=== PATIENT | female | born 1985 | race Caucasian/White ===

== ENCOUNTER → 2017-02-18 | Outpatient (CLI) | payer BC | LOC: CARD 13:56 | PROVIDERS: ATTEND Nurse Practitioner | DX: R00.0 Tachycardia, unspecified (principal); R00.2 Palpitations | CPT/HCPCS: 93005 ==

== ENCOUNTER → 2017-02-25 | Outpatient (CLI) | payer BC | LOC: CARD 08:33 | PROVIDERS: ATTEND Nurse Practitioner | DX: R00.0 Tachycardia, unspecified (principal); R00.2 Palpitations | CPT/HCPCS: 93225; 93226 ==

== ENCOUNTER 2020-12-15 07:05 | Inpatient (IN) | payer OTHER ==
[~2020-12-15] VITALS: Ht 172.7 cm; Wt 116.0 kg
[2020-12-15] VITALS (11 sets, daily range): BP systolic 112–128; BP diastolic 52–75
--- NOTE | 2020-12-15 07:11 | NUR ---
ADA RUSH presented to unit via ambulatory from home, accompanied by s/o , for INDUCTION. ADA RUSH weighed, gowned, voided, and to bed. EFHM and TOCO applied, VS taken. ADA RUSH oriented to bed controls, call light, TV, heat, and A/C controls.
[2020-12-15] MEDS ORDERED: D5 LR IV SOLUTION 1,000 ML IV ONE (08:16)
[2020-12-15 08:24] LABS: BASOPHILS % (AUTO) 0 % (0-10); EOSINOPHILS # (AUTO) 0.2 10^3/uL (0.0-0.3); EOSINOPHILS % (AUTO) 2 % (0-10); HEMATOCRIT 36 % (35-52); HEMOGLOBIN 12.3 g/dL (11.5-16.0); LYMPHOCYTES # (AUTO) 1.7 10^3/uL (1.0-4.0); LYMPHOCYTES % (AUTO) 25 % (12-44); MEAN CORPUSCULAR HEMOGLOBIN 29 pg (25-34); MEAN CORPUSCULAR HGB CONC 34 g/dL (32-36); MEAN CORPUSCULAR VOLUME 85 fL (80-99); MEAN PLATELET VOLUME 11.4 fL (9.0-12.2); MONOCYTES # (AUTO) 0.5 10^3/uL (0.0-1.0); MONOCYTES % (AUTO) 7 % (0-12); NEUTROPHILS # (AUTO) 4.6 10^3/uL (1.8-7.8); NEUTROPHILS % (AUTO) 66 % (42-75); PLATELET COUNT 176 10^3/uL (130-400)
[2020-12-15] MEDS: D5 LR IV SOLUTION 1,000 ML IV SCH ×4 (08:25→18:30)
[2020-12-15] MEDS ORDERED: LACTATED RINGERS 1,000 ML IV SCH (10:15)
[2020-12-15] MEDS ORDERED: FAMOTIDINE 20MG/2ML IV (PEPCID) IV ONE (10:15)
[2020-12-15] MEDS ORDERED: CITRIC ACID/SOB CIT (BICITRA) 30 ML UDC PO ONE (10:15)
[2020-12-15] MEDS ORDERED: METOCLOPRAMIDE INJ 10 MG/2 ML (REGLAN) IV ONE (10:15)
[2020-12-15] MEDS ORDERED: FAMOTIDINE 20MG/2ML IV (PEPCID) ONE (10:19)
[2020-12-15] MEDS ORDERED: CITRIC ACID/SOB CIT (BICITRA) 30 ML UDC ONE (10:19)
[2020-12-15] MEDS ORDERED: LACTATED RINGERS 1,000 ML IV ONE (10:19)
[2020-12-15] MEDS ORDERED: METOCLOPRAMIDE INJ 10 MG/2 ML (REGLAN) ONE (10:19)
[2020-12-15] MEDS ORDERED: metroNIDAZOLE 500MG/100ML IVPB 100 ML ONE (10:21)
[2020-12-15] MEDS ORDERED: ceFAZolin 2 GM IV Premixed 50 ML ONE (10:21)
[2020-12-15] MEDS ORDERED: metroNIDAZOLE 500MG/100ML IVPB 100 ML IV ONE (10:30)
[2020-12-15] MEDS ORDERED: ceFAZolin INJECTION 2,000 MG in WATER (STERILE) FOR INJECTION 10 ML IV ONE (10:30)
[2020-12-15] MEDS: LACTATED RINGERS 1,000 ML IV SCH ×2 (10:30→18:15)
--- NOTE | 2020-12-15 10:30 | History & Physical ---
History and Physical Date Seen by Provider: Dec 15, 2020 Time Seen by Provider: 10:28 This patient is a 35-year-old 1 white female currently at 38 weeks gestation who was admitted for delivery. Plan was for labor induction however presentation is breech so plan now is for a primary delivery. Patient denies rupture membranes or bleeding. She does feel baby moving. She has occasional contractions. She has had no problems with this and her blood sugars have been controlled with diet. Her GBS culture was negative. Patient is allergic to sulfa drugs Medications are vitamins Medical social and surgical history is all per the antepartum record HEENT exam is normal Neck is supple no lymphadenopathy no thyromegaly Abdomen is gravid soft nontender nondistended Extremities show no clubbing or cyanosis. There is no Homans' sign. Pelvic exam is deferred Bedside ultrasound showed a breech presentation with the head in the left upper quadrant Assessment and plan term at 38+ weeks gestation with gestational diabetes admitted now for delivery plan will be for primary delivery due to breech presentation 38 weeks gestation with breech presentation and gestational diabetes Allergies and Home Medications Allergies Coded Allergies: Sulfa (Sulfonamide Antibiotics) (Verified Allergy, Severe, 12/15/20) Patient Home Medication List Home Medication List Reviewed: Yes YIN BATES MD Dec 15, 2020 10:30
[2020-12-15] MEDS ORDERED: fentaNYL INJECTION 100 MCG/2 ML AMP ONE (10:36)
[2020-12-15] MEDS ORDERED: OXYTOCIN PRE-MIX DRIP 1,000 ML IV ONE (10:37)
[2020-12-15] MEDS ORDERED: KETOROLAC 30 MG/ML VIAL ONE (11:22)
[2020-12-15] MEDS ORDERED: fentaNYL INJECTION 100 MCG/2 ML AMP IVP PRN (12:00)
[2020-12-15] MEDS ORDERED: D5 LR IV SOLUTION 1,000 ML IV SCH (12:00)
[2020-12-15] MEDS ORDERED: TETANUS,DIPTH,PERTUSS P/F (BOOSTRIX) 0.5 ML VIAL IM ONE (12:00)
[2020-12-15] MEDS ORDERED: ONDANSETRON 4 MG/2 ML (SDV) Z0FRAN IVP PRN (12:00)
[2020-12-15] MEDS ORDERED: MEASLES,MUMPS,RUBELLA 1 EA INJ SC ONE (12:00)
[2020-12-15] MEDS: OXYTOCIN PRE-MIX DRIP 500 ML IV SCH ×2 (12:03→16:00)
[2020-12-15] MEDS: KETOROLAC 30 MG/ML VIAL IVP SCH ×2 (12:04→18:21)
[2020-12-15] MEDS ORDERED: ONDANSETRON 4 MG/2 ML (SDV) Z0FRAN ONE (12:04)
[2020-12-15] MEDS ORDERED: BUPIVACAINE 0.5% 30 ML (SENSORCAINE) VIAL ONE (12:04)
--- NOTE | 2020-12-15 12:40 | NUR ---
Received pt from PACU on bed. Accompanied via surgery staff. IV infusing with out difficulty. Viviana Lund RN gave this nurse report. Pt alert and oriented. No concerns voiced at this time. To room 313. see nursing interventions.
--- NOTE | 2020-12-15 17:29 | OPERATIVE REPORT ---
DATE OF SERVICE: 12/15/2020 OPERATIVE PROCEDURE: Primary low transverse delivery of a viable male with Apgars of 2 and 9 at 1 and 5 minutes respectively, weight of 7 pounds 10 ounces. Cord blood gas pH of 7.15 and a time of 11:17. OPERATIVE DESCRIPTION: With the patient in the supine position under satisfactory spinal analgesia, she was repositioned in the dorsal lithotomy position and then prepped and draped in the usual fashion for abdominal surgery. Camacho catheter was placed in the urinary bladder. A Pfannenstiel incision was then made through the skin with a scalpel. The patient's abdomen was entered in the usual manner. Bladder retractor was placed in position. Clean scalpel used to make a 4 cm hysterotomy incision transversely across the lower uterine segment that was extended by blunt dissection as well. The uterus was entered bluntly, after initiating the incision and then clear fluid was released with a fair amount of blood as it appears that we penetrated the lower margin of an anterior placenta. The incision was extended bluntly and then the was delivered via the uterine incision from a aria breech position. Delivery was accomplished in standard surgical manner for a breech. The was bulb suctioned on completion of delivery, the umbilical cord was doubly clamped and cut and the passed to the pediatric nurse in attendance for delivery. Cord bloods were obtained. The placenta delivered spontaneously. It was Olmedo delivery of the placenta. That was sent to pathology for permanent section. The placenta was normal with a 3-vessel cord. The uterus was exteriorized. The interior was wiped clean with a wet laparotomy sponge. Uterine incision then closed with a running locked suture of 2-0 Vicryl. Hemostasis was complete. The uterus was returned to the abdominal cavity. All blood clot and debris removed from the abdominal cavity. With sponge and needle counts correct and hemostasis assured, the anterior parietal peritoneum was closed with running suture of 2-0 Vicryl. Rectus muscles were closed with that suture as well. The rectus fascia was closed with 2-0 Vicryl, subcutaneous tissue was closed with 2-0 Vicryl and then the skin was stapled. Sponge and needle counts were correct on completion of the procedure. Estimated blood loss was around 500 mL. The patient tolerated the procedure well and was transferred to the recovery room in stable condition. The infant had been taken stable to the full term nursery under the care of the pediatric nurse. Job ID: [id number] DocumentID: [id number] Dictated Date: 12/15/2020 12:31:56 Wet Finisher Wool Date: 12/15/2020 17:28:51 Dictated By: YIN BATES MD MTDD
--- NOTE | 2020-12-15 18:00 | NUR ---
Pt up to BR voided without difficulty. Steady on feet assist x 1. No concerns voiced. Pt returned to bed.
--- NOTE | 2020-12-15 20:15 | NUR ---
Pt sitting up in bed doing skin to skin with . Plan of care reviewed. Info papers explained. Fresh ice water given. Pt and deny needs.
[2020-12-15] MEDS: DOCUSATE SODIUM 100 MG (COLACE) CAP PO SCH (20:18)
[2020-12-15] MEDS ORDERED: DOCUSATE SODIUM 100 MG (COLACE) CAP PO SCH (21:00)
[2020-12-16] MEDS: KETOROLAC 30 MG/ML VIAL IVP SCH ×2 (00:02→05:51)
[2020-12-16 00:10] VITALS: BP 128/66
[2020-12-16 03:45] VITALS: BP 117/57
[2020-12-16] MEDS ORDERED: DCS100C PO (07:18)
[2020-12-16] MEDS ORDERED: IBUP-1780 PO (07:18)
[2020-12-16] MEDS ORDERED: OXYC1TAB12 PO (07:18)
--- NOTE | 2020-12-16 07:20 | Discharge Inst-Surgical ---
Discharge Inst-Surgical Depart Medication/Instructions New, Converted or Re-Newed RX: RX on Chart Consults/Follow Up Patient Instructions: As directed Orders & Referrals Follow Up Appt: RTC On Wednesday, December 23, 2020 at 9:30 AM for incision check. Call to make follow up appt. for patient in 4 weeks. Wound Care: Remove ayesha, apply benzoin and steri strips. Activity Per routine post instructions. Please call in RX to patient pharmacy. Diet as tolerated Patient may shower or tub bathe as desired. Continue home meds Activity Activity as Tolerated: No Diet Discharge Diet: No Restrictions YIN BATES MD Dec 16, 2020 07:20
--- NOTE | 2020-12-16 08:08 | Anesthesia-Regional Post-Op ---
Regional Patient Condition Mental Status: Alert, Oriented x3 Circulation: Same as Pre-Op Headache: Absent Sensation: Full Recovery Motor Block: Absent Post Op Complications Complications None Follow Up Care/Instructions Patient Instructions None needed. Anesthesia/Patient Condition Patient is doing well, no complaints, stable vital signs, no apparent adverse anesthesia problems. ESTEFANI CEJA DO Dec 16, 2020 08:08
[2020-12-16 09:12] VITALS: BP 120/62
[2020-12-16] MEDS: DOCUSATE SODIUM 100 MG (COLACE) CAP PO SCH (09:12)
--- NOTE | 2020-12-16 09:15 | NUR ---
Pt resting in bed with infant skin to skin. Physical shift assessment complete, vitals obtained, scheduled meds given. Fresh linens for shower provided. No further needs at this time.
[2020-12-16] MEDS ORDERED: IBUPROFEN 800 MG (MOTRIN) TAB PO ONE (12:08)
[2020-12-16] MEDS ORDERED: IBUPROFEN 800 MG (MOTRIN) TAB PO SCH (12:30)
--- NOTE | 2020-12-16 12:30 | NUR ---
Vitals obtained and scheduled meds given. Hygiene supplies provided for pt. No further needs at this time.
[2020-12-16 12:31] VITALS: BP 120/72
[2020-12-16] MEDS: oxyCODONE/APAP 10/325MG (PERCOCET 10) TABLET PO PRN (15:46)
[2020-12-16 18:05] VITALS: BP 120/60
[2020-12-16] MEDS: IBUPROFEN 800 MG (MOTRIN) TAB PO SCH (18:07)
[2020-12-17 00:03] VITALS: BP 125/63
[2020-12-17] MEDS: IBUPROFEN 800 MG (MOTRIN) TAB PO SCH ×5 (00:04→23:54)
[2020-12-17] MEDS: oxyCODONE/APAP 10/325MG (PERCOCET 10) TABLET PO PRN ×3 (00:04→14:16)
[2020-12-17] MEDS: DOCUSATE SODIUM 100 MG (COLACE) CAP PO SCH ×3 (00:04→23:54)
[2020-12-17 06:02] VITALS: BP 116/58
--- NOTE | 2020-12-17 10:18 | Progress Note ---
Standard Progress Note Progress Notes/Assess & Plan Date Seen by a Provider: Dec 17, 2020 Time Seen by a Provider: 10:16 Progress/Assessment & Plan This patient is without complaint. She is ambulating, voiding, tolerating oral intake well and has good pain control. Vital Signs Date Time Temp Pulse Resp B/P (MAP) Pulse Ox O2 Delivery O2 Flow Rate FiO2 12/17/20 06:02 36.8 92 16 116/58 (77) 96 Room Air 12/17/20 00:03 36.8 81 16 125/63 (83) 97 Room Air 12/16/20 18:05 36.7 77 16 120/60 (80) 99 Room Air 12/16/20 12:31 36.6 87 16 120/72 (88) 96 Room Air I & O 12/17/20 07:00 Intake Total 1200 ml Balance 1200 ml Vital signs are stable. Patient is afebrile. Fundus is firm below the umbilicus and nontender. The surgical incision is clean dry intact. Extremities show no clubbing or cyanosis. There is no Homans' sign. Assessment and plan postoperative day #2 status post primary delivery secondary to breech presentation. Plan is for discharge home with follow-up in clinic unless the baby is not discharged in which case we will hold discharge until tomorrow Final Diagnosis 38-week primary delivery YIN BATES MD Dec 17, 2020 10:18
[2020-12-17 12:20] VITALS: BP 112/55
[2020-12-17 18:12] VITALS: BP 111/59
[2020-12-17 23:53] VITALS: BP 102/61
[2020-12-18 06:05] VITALS: BP 137/72
[2020-12-18] MEDS: IBUPROFEN 800 MG (MOTRIN) TAB PO SCH ×2 (06:06→12:07)
[2020-12-18] MEDS: DOCUSATE SODIUM 100 MG (COLACE) CAP PO SCH (09:15)
[2020-12-18 09:16] VITALS: BP 134/72
--- NOTE | 2020-12-18 11:35 | NUR ---
Dr richards to see patient and new order for discharge received.
--- NOTE | 2020-12-18 11:37 | Progress Note ---
Standard Progress Note Progress Notes/Assess & Plan Date Seen by a Provider: Dec 18, 2020 Time Seen by a Provider: 11:36 Progress/Assessment & Plan This patient is without complaint. She is ambulating, voiding, tolerating oral intake well and has good pain control. Vital Signs Date Time Temp Pulse Resp B/P (MAP) Pulse Ox O2 Delivery O2 Flow Rate FiO2 12/17/20 06:02 36.8 92 16 116/58 (77) 96 Room Air 12/17/20 00:03 36.8 81 16 125/63 (83) 97 Room Air 12/16/20 18:05 36.7 77 16 120/60 (80) 99 Room Air 12/16/20 12:31 36.6 87 16 120/72 (88) 96 Room Air I & O 12/17/20 07:00 Intake Total 1200 ml Balance 1200 ml Vital signs are stable. Patient is afebrile. Fundus is firm below the umbilicus and nontender. The surgical incision is clean dry intact. Extremities show no clubbing or cyanosis. There is no Homans' sign. Assessment and plan postoperative day #2 status post primary delivery secondary to breech presentation. Plan is for discharge home with follow-up in clinic unless the baby is not discharged in which case we will hold discharge until tomorrow Final Diagnosis December 18, 2020 Patient is without complaint. She is ambulating, voiding, tolerating oral intake well and has good pain control. Vital signs are stable. Patient is afebrile. Physical exam is benign Assessment and plan postoperative day #3 status post repeat primary delivery. Patient is doing well will be discharged home today YIN BATES MD Dec 18, 2020 11:37
--- NOTE | 2020-12-18 12:15 | NUR ---
Discharge instructions explained, signed and copy to patient. pt verbalized understanding of instructions and denied questions. prescription given for Percocet and will call other meds to [facility]
[2020-12-18 13:00] VITALS: BP 134/72
--- NOTE | 2020-12-18 13:00 | NUR ---
Discharged to home. Downstairs in wheelchair and to private vehicle with belongings in hand
[2020-12-20] MEDS ORDERED: IBUPROFEN 800 MG (MOTRIN) TAB PO SCH (12:00)
[2021-10-19] MEDS ORDERED: IBUPROFEN 800 MG (MOTRIN) TAB PO SCH (12:00)
== END 2020-12-18 13:00 | disposition home or self-care (01) | DRG 788 ==
LOC: LDRP 07:05
PROVIDERS: ADMIT Obstetrics & Gynecology; ATTEND Obstetrics & Gynecology
PROC: 10D00Z1 Extraction of Products of Conception, Low, Open Approach (ICD-10-PCS; principal; 2020-12-15 10:50)
DX: O24.429 Gestational diabetes mellitus in childbirth, unspecified control (principal); O32.1XX0 Maternal care for breech presentation, not applicable or unspecified; Z20.822 Contact with and (suspected) exposure to COVID-19; Z3A.38 38 weeks gestation of pregnancy; Z37.0 Single live birth; Z88.2 Allergy status to sulfonamides
CPT/HCPCS: 36415; 85025; 86850; 86900; 86901; 87635; 88307; 94664

== ENCOUNTER 2023-05-13 12:54 | Outpatient (CLI) | payer OTHER ==
[~2023-05-13] VITALS: Ht 172.7 cm; Wt 116.0 kg
[~2023-05-13 12:54] MED LIST: DOCU-239 PO; IBUP-1780 PO; OXYC1TAB12 PO
[2023-05-13 13:10] VITALS: BP 118/64
[2023-05-13 13:32] VITALS: BP 118/64
--- NOTE | 2023-06-03 15:50 | Physician Query-Final Dx ---
ANGELA SANTIAGO 06/03/23 1550: Final Diagnosis Give Final Diagnosis Please give Final Diagnosis KIM OSPINA DO 06/03/23 1713: Final Diagnosis Give Final Diagnosis 20 week IUP Fall at home ANGELA SANTIAGO Jun 03, 2023 15:50 KMI OSPINA DO Jun 03, 2023 17:13
== END 2023-05-13 13:32 | disposition home or self-care (01) ==
LOC: LDRP 12:54 → WSo 12:54
PROVIDERS: ATTEND Obstetrics & Gynecology
DX: O99.891 Other specified diseases and conditions complicating pregnancy (principal); Z3A.20 20 weeks gestation of pregnancy; W19.XXXA Unspecified fall, initial encounter
CPT/HCPCS: 99212